=== PATIENT | male | born 1955 | race Caucasian/White ===

== ENCOUNTER 2017-10-09 20:16 | Emergency (ER) | payer MEDICARE, BC, OTHER ==
[2017-10-09] MEDS ORDERED: Bacitracin Zinc 1 Packet ONE (21:13)
--- NOTE | 2017-10-09 23:09 | RAD ---
CHEST TWO VIEWS: Date: 10-09-17 Comparison: 09-28-16 FINDINGS: The heart remains normal in size and the lungs are clear. There is no mediastinal widening or shift. No pneumothorax or pleural effusion is seen. No fractures were detected. IMPRESSION: No acute thoracic finding. POS: HOME
== END 2017-10-09 21:46 | disposition home or self-care (01) ==
LOC: BURERS 20:16
DX: S50.812A Abrasion of left forearm, initial encounter (principal); S50.811A Abrasion of right forearm, initial encounter; G12.21 Amyotrophic lateral sclerosis; Z79.899 Other long term (current) drug therapy; W01.190A Fall on same level from slipping, tripping and stumbling with subsequent striking against furniture, initial encounter; Y92.009 Unspecified place in unspecified non-institutional (private) residence as the place of occurrence of the external cause
CPT/HCPCS: 71046